=== PATIENT | female | born 1960 | race Caucasian/White ===

== ENCOUNTER → 2020-03-04 12:58 | Outpatient (CLI) | payer BC, SELFPAY | PROVIDERS: Referring Provider Family Medicine; Visit Provider Family Medicine | DX: Z11.59 Encounter for screening for other viral diseases (principal) | CPT/HCPCS: 87635; U0003 ==

== ENCOUNTER → 2020-03-18 10:44 | Outpatient (CLI) | payer BC, SELFPAY ==
[2015-06-04 09:05] VITALS: BMI 28.6
== END ==
PROVIDERS: Referring Provider Family Medicine; Visit Provider Family Medicine
DX: Z11.59 Encounter for screening for other viral diseases (principal)
CPT/HCPCS: 87635; U0003

== ENCOUNTER → 2020-04-01 12:34 | Outpatient (CLI) | payer BC, SELFPAY ==
[2015-06-04 09:05] VITALS: BMI 28.6
== END ==
PROVIDERS: Referring Provider Family Medicine; Visit Provider Family Medicine
DX: Z03.818 Encounter for observation for suspected exposure to other biological agents ruled out (principal)
CPT/HCPCS: 87635; U0003

== ENCOUNTER → 2020-04-15 10:25 | Outpatient (CLI) | payer BC, SELFPAY ==
[2015-06-04 09:05] VITALS: BMI 28.6
== END ==
PROVIDERS: Referring Provider Family Medicine; Visit Provider Family Medicine
DX: Z03.818 Encounter for observation for suspected exposure to other biological agents ruled out (principal)
CPT/HCPCS: 87635; U0003

== ENCOUNTER → 2020-04-29 12:06 | Outpatient (CLI) | payer BC, SELFPAY ==
[2015-06-04 09:05] VITALS: BMI 28.6
== END ==
PROVIDERS: Referring Provider Family Medicine; Visit Provider Family Medicine
DX: Z03.818 Encounter for observation for suspected exposure to other biological agents ruled out (principal)
CPT/HCPCS: 87635; U0003